=== PATIENT | male | born 1940 | race Caucasian/White ===

== ENCOUNTER 2020-11-15 17:54 | Emergency (ER) | payer MEDICARE, SELFPAY ==
--- NOTE | ~2020-11-15 | XR_ITS ---
XR hip LT 2V w AP pelvis DATE: 11/15/2020 18:29 INDICATION: Fall. Left hip pain. TECHNIQUE: AP pelvis. AP and lateral views of left hip. COMPARISON: None FINDINGS: Iliac and femoral artery calcifications. Normal alignment at the pubic symphysis and sacroiliac joints. No pelvic fracture or bone destruction is evident. No fracture or dislocation, avascular necrosis or bone destruction of the left hip. IMPRESSION: No pelvic or left hip fracture is detected Reviewed, dictated and finalized at location A.
[2020-11-15 17:46] VITALS: BP 186/101; PULSE 83; RESP 18; TEMP 36.9; O2SAT 98
--- NOTE | 2020-11-15 19:02 | PC.NURSE ---
pts daughter/concetta estebanry
--- NOTE | 2020-11-15 20:02 | ED.FALL ---
HPI - Fall General Chief Complaint: Fall Stated Complaint: FALL/L HIP PAIN Time Seen by Provider: 11/15/20 18:28 Source: patient Mode of arrival: EMS Limitations: no limitations History of Present Illness HPI Narrative: 80-year-old male He uses an electric scooter to get around Day he fell while transferring off a scooter and landed on his left hip and butt Essentially he has very little if any complaints of any kind of pain due to this however when the nurses checked him out they found He denies any other new injury to any other places, his left arm is wrapped because of a skin tear sustained in a fall a week or 2 ago Related Data Allergies Allergy/AdvReac Type Severity Reaction Status Date / Time NSAIDS (Non-Steroidal Allergy Unknown Verified 11/15/20 18:13 Anti-Inflamma tramadol Allergy Unknown Verified 11/15/20 18:13 Review of Systems Review of Systems: All systems reviewed & are unremarkable except as noted in HPI and below Constitutional: Constitutional: Reports no additional constitutional complaints, Denies chills, Denies fatigue, Denies fever(s), Denies headache(s) and Reports weakness Eyes: Eyes: Reports no additional eye complaints and Denies change in vision ENT: Denies dizziness, Denies headache(s) and Denies sore throat Cardiovascular: Cardiovascular: Denies chest pain and Denies dyspnea Respiratory: Respiratory: Denies cough and Denies dyspnea Gastrointestinal: Gastrointestinal: Denies abdominal pain, Denies diarrhea and Denies vomiting Genitourinary: Genitourinary: Denies dysuria, Denies urinary frequency and Reports urinary incontinence Musculoskeletal: Musculoskeletal: Denies deformity, Reports arthralgias, Denies joint swelling and Denies numbness Integumentary/Breasts: Skin/Breast: Denies rash and Denies wounds Neurologic: Denies headache(s), Denies focal weakness and Denies numbness Psychiatric: Psychiatric: Reports no additional psychiatric complaints Endocrine: Endocrine: Reports no additional endocrine complaints Hematologic/Lymphatic: Hematologic/Lymphatic: Reports no additional hematologic/lymphatic complaints Allergic/Immunologic: Allergic/Immunologic: Reports no additional allergic/immunologic complaints Exam Const: General: cooperative, no acute distress and alert HENMT: Head: normal to inspection, normocephalic, atraumatic, no contusions, no hematomas and no lacerations Ears: external ears normal Eyes: Conjunctivae: conjunctivae normal EOM: EOMs intact bilaterally Neck: Neck: normal visual inspection, supple and no JVD Chest: Other: Nontender Resp: Effort & Inspection: normal respiratory effort and not labored Auscultation: other (BS =) GI: GI Palp: Yes Soft to palpation and No Tenderness to palpation present (GI) Back/Spine/Pelvis: Other: No spinal tenderness Skin: General skin exam: normal color and no rashes or lesions noted Neuro: General: moves all extremities Speech: normal speech Extrem: General: normal to inspection Other: Full range of motion both hips, no pain Psych: Affect: normal affect Course Vital Signs Vital signs: Vital Signs Temperature 36.9 C 11/15/20 17:46 Pulse Rate 83 11/15/20 17:46 Respiratory Rate 18 11/15/20 17:46 Blood Pressure 186/101 H 11/15/20 17:46 Pulse Oximetry 98 11/15/20 17:46 Temperature 36.9 C 11/15/20 17:46 Pulse Rate 83 11/15/20 17:46 Respiratory Rate 18 11/15/20 17:46 Blood Pressure 186/101 H 11/15/20 17:46 Pulse Oximetry 98 11/15/20 17:46 MDM - Fall Imaging Data Radiologist's impression: ITS Impressions Hip/Pelvis X-Ray 11/15/20 18:40 IMPRESSION: No pelvic or left hip fracture is detected Discharge Plan Discharge Clinical Impression: Fall, Contusion of hip Patient Disposition: NH Intermediate/Asst Living Condition: Stable Instructions: Fall Prevention for Older Adults (ED), Contusion in Adults (ED) Additional Instructions: Fo
[2020-11-15 20:15] VITALS: BP 175/70; PULSE 82; RESP 79; TEMP 37.1; O2SAT 99
== END 2020-11-15 20:19 ==
PROVIDERS: Emergency Provider Emergency Medicine
DX: S70.02XA Contusion of left hip, initial encounter (principal); W05.2XXA Fall from non-moving motorized mobility scooter, initial encounter
CPT/HCPCS: 73502; 99283

== ENCOUNTER 2021-01-01 10:13 | Inpatient (IN) | payer MEDICARE, SELFPAY ==
[2021-01-01] VITALS (76 sets, daily range): BP systolic 105–148; BP diastolic 48–102; PULSE 68–92; RESP 14–29; TEMP 36.4–38.9; O2SAT 93–100
--- NOTE | ~2021-01-01 | US_ITS ---
EXAMINATION: US renal BI DATE: 01/03/2021 12:52 INDICATION: Elevated creatinine TECHNIQUE: Multiple grayscale and Doppler ultrasound images of the kidneys were obtained. COMPARISON: None. FINDINGS: The right kidney measures 9.6 x 4.9 x 5.2 cm and contains a 3.8 cm cyst. The left kidney me asures 9.0 x 4.9 x 5.3 cm. The kidneys demonstrate normal parenchymal echogenicity. There is mild tika ateral hydronephrosis. The bladder is normal. IMPRESSION: 1. Mild bilateral hydronephrosis. Reviewed, dictated and finalized at location A.
--- NOTE | ~2021-01-01 | XR_ITS ---
EXAMINATION: XR chest 1V portable DATE: 01/01/2021 10:47 INDICATION: Shortness of breath TECHNIQUE: frontal view of the chest was obtained. COMPARISON: 11/12/2007 FINDINGS: Suture line in the left midlung zone and additional suture line and a few surgical clips in the left lower lung zone. There are nodular airspace opacities in the left midlung zone and in the right upper lung zone. No pulmonary edema, pleural effusion or pneumothorax. Heart size can't for AP technique. Median sternotomy wires and mediastinal surgical clips are seen, likely from prior coronary artery by pass grafting. IMPRESSION: 1. Nodular opacities in the left mid and right upper lung zones which could be infectious, inflammato ry or malignant in etiology. Recommend follow-up chest CT for further evaluation. 2. Postoperative changes in the left lung. Correlate with surgical history. Reviewed, dictated and finalized at location A. IMPRESSION: 1. Nodular opacities in the left mid and right upper lung zones which could be infectious, inflammatory or malignant in etiology. Recommend follow-up chest CT for further evaluation. 2. Postoperative changes in the left lung. Correlate with surgical history.
--- NOTE | ~2021-01-01 | CT_ITS ---
EXAMINATION: CT diagnostic chest wo con DATE: 01/01/2021 12:57 INDICATION: Chest infiltration TECHNIQUE: Computed tomography (CT) of the chest was performed without intravenous contrast. Addition al 3D reconstructions utilizing coronal maximum intensity projection (MIP) were performed. Automated exposure control and iterative reconstruction technique were employed. The dose-length product was 25 6.13 mGy-cm. COMPARISON: None FINDINGS: There are multiple cavitary nodules scattered throughout both lungs. Many of the nodules demonstrate lobular margins and 8 appear to follow a perilymphatic distribution. The largest nodules in both lung s measuring up to 3 cm. There are suture lines along side a 50 nodules in the left lower lobe which s uggests possible prior biopsy. No pulmonary edema or pleural effusion. Mild cardiomegaly. Atheroscler otic coronary artery calcifications. Coronary artery stenting along with median sternotomy and likely coronary artery bypass grafting. Aortic valve calcification. No pericardial effusion. Atheroscleroti c calcifications along the normal caliber thoracic aorta and at the origins of the great vessels. No pathologically enlarged thoracic lymphadenopathy. Multiple calcified gallstones in the dependent aspe ct of the otherwise normal-appearing gallbladder. Incompletely imaged moderate bilateral hydronephros is. The bilaterality suggests outlet obstruction as etiology although there are a few tiny right annabel l stones in the distal obstructing stone cannot be excluded. Mild to moderate thoracic spondylosis. N o suspicious lytic or blastic bone lesions. IMPRESSION: 1. Multiple scattered cavitary nodules throughout both lungs with perilymphatic distribution. Suture line seen left lower lobe suggest this may been up previously with biopsy and would correlate with shen rgical history. Differential would include cavitating malignancy, septic emboli or atypical infection s including fungal and mycobacterial. Differential would also include noninfective etiologies such as rheumatoid nodules, granulomatosis with polyangiitis or sarcoidosis. Would consider CT-guided biopsy if these have not been previously worked up. Reviewed, dictated and finalized at location A. IMPRESSION: 1. Multiple scattered cavitary nodules throughout both lungs with perilymphatic distribution. Suture line seen left lower lobe suggest this may been up previo usly with biopsy and would correlate with surgical history. Differential would include cavitating malignancy, septic emboli or atypical infections including f ungal and mycobacterial. Differential would also include noninfective etiologie s such as rheumatoid nodules, granulomatosis with polyangiitis or sarcoidosis. Would consider CT-guided biopsy if these have not been previously worked up.
--- NOTE | 2021-01-01 10:25 | ECG_ITS ---
Measurements Intervals [place] Rate: 94 P: 27 WV: 134 QRS: -18 QRSD: 125 T: 37 QT: 380 QTc: 477 Interpretive Statements SINUS RHYTHM ATRIAL PREMATURE COMPLEX RSR' IN V1 OR V2, CONSIDER RIGHT VENTRICULAR HYPERTROPHY OR RIGHT VCD CONSIDER INFERIOR INFARCT, AGE INDETERMINATE BASELINE ARTIFACT- I, II, III, AVR, AVL, AVF, V3-V6 BORDERLINE ECG Electronically Signed On 01-01-2021 15:29:33 CDT by Karan José D.O.
[2021-01-01 10:37] LABS: Alveolar/Arterial O2 Gradient 81.8 mmHg; Base Excess ABG -0.8 mEq/l (+/-2.0); Carboxyhemoglobin 0.4 % THb (0-2.0); Fractional Inspired Oxygen 28 %; HCO3 ABG 23.5 mEq/l (22.0-26.0); Oxygen Content ABG 13.3 %vol (16.0-22.0); Oxygen Saturation ABG 95.3 % (95.0-100.0); Oxyhemoglobin 93.8 % THb (90.0-100.0); PCO2 ABG 36.9 mmHg (35.0-45.0); PO2 ABG 74.3 mmHg (80.0-100.0); PO2 FiO2 Ratio Arterial Blood 2.65 %; Reduced Hemoglobin 5.8 %THb (0-5.0); pH ABG 7.421 (7.350-7.450)
[2021-01-01 10:38] LABS: Device NASAL CANNULA; Modified Allen's Test Pass; Site Drawn RIGHT RADIAL
[2021-01-01 11:10] LABS: Basophils Percent Auto 0.3 % (0.2-1.2); Eosinophils Percent Auto 0.2 % (0-4.4); Hematocrit 25.5 % (42.0-52.0); Hemoglobin 8.4 g/dL (14.0-18.0); Immature Granulocyte Absolute 0.04 K/mm3 (0.00-0.031); Immature Granulocyte Percent A 0.5 % (0-0.5); Lymphocytes Absolute Auto 0.28 K/mm3 (0.9-3.2); Lymphocytes Percent Auto 3.3 % (18.3-44.2); Mean Corpuscular HGB Conc 32.9 g/dl (32-36); Mean Corpuscular Volume 91.1 fl (80-100); Mean Platelet Volume 9.5 fl (7.4-10.4); Monocytes Absolute Auto 0.7 K/mm3 (0.1-0.6); Monocytes Percent Auto 8.1 % (2.6-8.5); Neutrophils Absolute Auto 7.5 K/mm3 (1.3-6.7); Neutrophils Percent Auto 87.6 % (45.5-73.1); Platelet Count Result 178 k/mm3 (150-375); Red Cell Distribution Width 14.3 % (11.5-14.5); White Blood Count 8.6 K/mm3 (4.5-10.0)
[2021-01-01 11:19] LABS: INR 1.2; Prothrombin Time 14.7 Seconds (11.1-14.7)
[2021-01-01 11:20] LABS: Alanine Aminotransferase 16 U/L (4-50); Albumin Level 3.6 g/dL (3.5-5.1); Alkaline Phosphatase 63 U/L (38-126); Anion Gap 12 mmol/L (8-16); Aspartate Amino Transferase 28 U/L (17-59); Bilirubin,Total 0.9 mg/dL (0.2-1.3); Blood Urea Nitrogen 38 mg/dL (9-20); Calcium 8.1 mg/dL (8.4-10.2); Carbon Dioxide 23 mmol/L (22-30); Chloride 93 mmol/L (98-107); Estimated CRCL calculation 28 ml/min; Estimated Glomerular Filt Rate 29; Glucose 386 mg/dL (65-110); Partial Thromboplastin Time 31.4 SECONDS (22.3-36.8); Potassium 3.9 mmol/L (3.4-5.0); Sodium 128 mmol/L (137-145)
[2021-01-01 11:38] LABS: Add Urine Microscopic? YES; Appearance Urine Cloudy (Clear); Bacteria Urine Trace /hpf; Bilirubin Urine Negative (Negative); Blood Urine 1+ (Negative); Color Urine Yellow (Yellow); Glucose Urine UA 3+ mg/dL (Negative); Ketones Urine Negative (Negative); Leukocyte Esterase Ur 3+ LEU/UL (Negative); Nitrate Urine Positive (Negative); Protein Urine 2+ mg/dL (Negative); Specific Grav Ur 1.006 (1.001-1.035); Urobilinogen Urine Negative mg/dL (<2.0); WBC Urine >75 /hpf
--- NOTE | 2021-01-01 12:32 | ED.GENADULT ---
HPI - General Adult General Chief complaint: Shortness of Breath/Dyspnea Stated complaint: sob Time Seen by Provider: 01/01/21 10:46 Source: patient, family, EMS and RN notes reviewed Limitations: no limitations History of Present Illness HPI narrative: Patient is 80 years old white male brought to the emergency room from assisted living because of shortness of breath. The assisting living staff reports that patient did not use his CPAP last night. This morning his saturation was 78% on room air. Patient does not wear oxygen during daytime. Patient does not know why he did not use CPAP last night. 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 Patient had PET scan 2 days ago at [facility] for prostatic cancer evaluation. Patient is fully vaccinated for COVID-19 Related Data Allergies Allergy/AdvReac Type Severity Reaction Status Date / Time NSAIDS (Non-Steroidal Allergy Unknown Verified 11/15/20 18:13 Anti-Inflamma tramadol Allergy Unknown Verified 11/15/20 18:13 Review of Systems Review of Systems: CONSTITUTIONAL: Denies fever, chills, or sweats. EYES: Denies visual changes, redness, or discharge. ENT: Denies rhinorrhea, congestion, sore throat, or otalgia. CARDIOVASCULAR: Denies chest pain, palpitations, or edema. RESPIRATORY: Denies cough or dyspnea. GASTROINTESTINAL: Denies abdominal pain, nausea, vomiting, or diarrhea. GENITOURINARY: Denies dysuria or hematuria. SKIN: Denies rash or itching. MUSCULOSKELETAL: Denies back pain, joint pain, or myalgia. NEUROLOGIC: Denies headache, numbness, or weakness. PSYCHIATRIC: Denies anxiety or depression. Exam Narrative: General appearance: Well-developed, well-nourished Skin: Normal color Head: Normocephalic, nontraumatic Eyes: Clear conjunctiva ENT: Oropharynx normal, ears normal, nose normal Neck: Supple, nontender Chest and respiratory: Diminishment of air entry bilaterally, few scattered rales and rhonchi bilaterally Heart: Regular rate/rhythm Abdomen: Soft, nontender, no organomegaly, quiet bowel sounds Vascular: Normal peripheral pulses, normal capillary refill. Musculoskeletal: Normal range of motion, nontender back Neurologic: Alert and oriented ?3, DISTRIBUTION LEAD is normal as tested, no gross motor deficit Course Course Emergency Course: Improving Consultations Consultation #1: DR SONG, oncologist at [facility]. She is telling me that the PET scan 2 days ago showed cavitary lesions patient was not notified about it and no extra precautions was instructed at that time Date: 01/01/21 Time: 17:17 Consultation #2: DR BLACKWOOD, hospitalist at [facility] who accepted patient transfer Date: 01/01/21 Time: 17:17 Consultation #3: DR FLOREZ, declined to admit patient Date: 01/01/21 Time: 19:09 Additional Consultation(s): DR EDER Akhtar agreed to manage the patient by the phone and work with the hospitalist to to recommend certain labs and medicine . But is not available today and tomorrow. Vital Signs Vital signs: Vital Signs Temperature 38.9 C H 01/01/21 10:29 Pulse Rate 92 01/01/21 10:29 Respiratory Rate 28 H 01/01/21 10:29 Blood Pressure 148/102 H 01/01/21 10:29 Pulse Oximetry 97 01/01/21 10:29 Temperature 36.4 C L 01/01/21 14:25 Pulse Rate 73 01/01/21 18:30 Respiratory Rate 21 H 01/01/21 18:30 Blood Pressure 105/52 L 01/01/21 18:16 Pulse Oximetry 98 01/01/21 18:30 Medical
[2021-01-01] MEDS: SODIUM CHLORIDE 0.9% IV 1,000 ML 999 ML IV CONT (13:55)
[2021-01-01] MEDS: ACETAMINOPHEN 325 MG TABLET 650 MG PO (13:55)
--- NOTE | 2021-01-01 20:08 | PC.NURSE ---
ED MD Clifton spoke with daughter to update her on plan of care prior to end of his shift. Per ED MD, pt has hx of lung ca, and had PET scan [facility] ago. pt to be transferred there for oncology, and was accepted by hospitalist. awaiting room assignment at [facility], but none available presently. Pt incontinent of urine. incontinence care provided and linens changed. linens changed. diabetic pt.
[2021-01-01 20:16] LABS: Glucose Point of Care 424 mg/dl (65-105)
[2021-01-01] MEDS: INSULIN HUMAN REGULAR (*BKC) 100 UNITS/ML 10 UNITS IV PUSH (20:32)
[2021-01-01 21:52] LABS: Glucose Point of Care 189 mg/dl (65-105)
--- NOTE | 2021-01-01 23:04 | PC.NURSE ---
payroll secretary called [facility] for update on bed assignment. Per transfer center, no beds available tonight for pt. will continue to monitor.
[2021-01-02] VITALS (49 sets, daily range): BP systolic 138–182; BP diastolic 50–126; PULSE 71–94; RESP 15–30; TEMP 37.2–37.9; O2SAT 59–100; BMI 28.6
[2021-01-02 00:15] LABS: Glucose Point of Care 170 mg/dl (65-105)
--- NOTE | 2021-01-02 00:47 | PC.NURSE ---
pt provided with snack as requested. pharmacy called to verify pt's abx ordered.
--- NOTE | 2021-01-02 04:41 | PC.NURSE ---
[facility] transfer center staff Pari called to update this RN that pt remains on wait list for bed at [facility], although none available at present time. none will be available until after 0700 am at the earliest. Transfer center also received updates on pt's condition, which has not changed since his arrival. will continue to monitor.
--- NOTE | 2021-01-02 04:58 | PC.NURSE ---
Pt used call light to state he had to have a bm. Pt incontinent of bm in adult brief. placed on bedpan. incontinence care provided.
--- NOTE | 2021-01-02 06:47 | PC.NURSE ---
Breakfast tray ordered for pt.
[2021-01-02 07:43] LABS: Glucose Point of Care 310 mg/dl (65-105)
[2021-01-02] MEDS: INSULIN ASPART (*BKC) 100 UNITS/ML SUB-Q ×3 (08:00→18:06)
--- NOTE | 2021-01-02 08:37 | PC.NURSE ---
pt continues to refuse breakfast despite receiving insulin for accuchek 310
[2021-01-02 09:36] LABS: Glucose Point of Care 275 mg/dl (65-105)
--- NOTE | 2021-01-02 10:47 | PM.IMHP ---
H&P: HPI History of Present Illness Date/Time: 01/02/21 10:47 he is 80-year-old male with past medical history HANNAH on CPAP, diabetes mellitus, hypertension, hyperlipidemia, chronic kidney disease, CA prostate with lung Mets who was sent over here from assisted living facility with hypoxia. Patient himself was not complaining of any shortness of breath. His only complaint was dizziness and lightheadedness. He denied have any syncope or fall. It seems that he was found hypoxic to 79% on room air by EMS. He is febrile as well with a T-max of 38.9?. He denied have any significant cough hemoptysis night sweats. He denied have any fever chills nausea vomiting abdominal pain or diarrhea. His appetite is poor. He denied have any chest pain palpitation. He normally ambulates with the help of walker and wheelchair. He is not on home oxygen. He follows with oncologist Dr. Mendoza at [facility]. It seemed that he was diagnosed to have prostate cancer 28 years ago. He has known lung Mets from prostate cancer. He was treated at [place] with some experimental drugs. He never had radiation. He denied have any exposure to in known TB patient. He denied have any extended travel outside [place] He was on 2 L of oxygen but his oxygen saturation was 100% at the time my evaluation. He had workup done in emergency department including CT of the chest which showed multiple cavitating nodules bilaterally in the lung. He does have cholelithiasis and nephrolithiasis with some moderate hydronephrosis. His creatinine is 2.2. His serum sodium is 128. Chief Complaint: Shortness of breath Review of Systems Review of Systems: A comprehensive review of systems has been reviewed with the patient and most of the symptoms are negative except the one's mentioned above in HPI. Meds Home Medications and Allergies Home Medications Medication Instructions Recorded Confirmed Type carvedilol 01/01/21 History fludrocortisone mg 01/01/21 History gabapentin 01/01/21 History insulin aspart U-100 unit SUBCUT 01/01/21 History insulin glargine [Lantus Solostar SUBCUT 01/01/21 History U-100 Insulin] omeprazole 01/01/21 History oxybutynin chloride mg PO 01/01/21 History rosuvastatin mg 01/01/21 History semaglutide [Ozempic] mg SUBCUT 01/01/21 History sertraline mg 01/01/21 History trazodone 100 mg PO HS 01/01/21 History Allergies Allergy/AdvReac Type Severity Reaction Status Date / Time NSAIDS (Non-Steroidal Allergy Unknown Verified 01/01/21 22:59 Anti-Inflamma tramadol Allergy Unknown Verified 01/01/21 22:59 Vital Signs Vital Signs - 24 hr 01/01/21 11:45 01/01/21 12:12 01/01/21 12:15 Temperature Pulse Rate 80 80 79 Respiratory Rate 25 H 25 H 22 H Blood Pressure 131/99 H Pulse Oximetry 99 100 01/01/21 12:17 01/01/21 13:01 01/01/21 13:15 Temperature Pulse Rate 75 70 70 Respiratory Rate 19 14 14 Blood Pressure 141/57 H Pulse Oximetry 100 100 98 01/01/21 13:17 01/01/21 13:54 01/01/21 14:00 Temperature Pulse Rate 70 74 73 Respiratory Rate 14 17 16 Blood Pressure 148/63 H Pulse Oximetry 99 97 99 01/01/21 14:02 01/01/21 14:21 01/01/21 14:25 Temperature 36.4 C L Pulse Rate 74 72 Respiratory Rate 20 19 Blood Pressure 117/61 Pulse Oximetry 98 98 01/01/21 14:31 01/01/21 14:32 01/01/21 14:36 Temperature Pulse Rate 73 73 73 Respiratory Rate 20 20 17 Blood Pressure 122/54 L 123/53 L Pulse Oximetry 98 98 98 01/01/21 17:05 01/01/21 17:15 01/01/21 17:16 Temperature Pulse Rate 70 71 71 Respiratory Rate 24 H 22 H 21 H Blood Pressure 116/53 L Pulse Oximetry 100 98 98 01/01/21 17:30 01/01/21 17:31 01/01/21 17:45 Temperature Pulse Rate 74 73 71 Respiratory Rate 17 20 23 H Blood Pressure 116/75 Pulse Oximetry 94 99 99 01/01/21 17:46 01/01/21 18:00 01/01/21 18:01 Temperature Pulse Rate 69 69 73 Respiratory Rate 21 H 20 18 Blood Pre
[2021-01-02 12:33] LABS: Glucose Point of Care 276 mg/dl (65-105)
[2021-01-02] MEDS: SODIUM CHLORIDE 0.9% IV 1,000 ML 75 ML IV CONT (12:41)
--- NOTE | 2021-01-02 13:26 | PC.NURSE ---
accepting md at [facility] is dr. wood. accepting oncologist at [facility] is dr. anderson
--- NOTE | 2021-01-02 13:58 | ADMGEN ---
This patient, Horace Wynne, was admitted to [facility] Surg Room 309-01. Patient/family oriented to hospital policies and general routines including ID bracelet, bed and alarms, visiting hours, pain management, procedures, bathroom and other care routines, personal items, smoking policy, room service/diet, and visiting hours. Information on how to activate the Rapid Response Team has been discussed. Patient/Family are encouraged to report perceived risks to care and to ask questions if they do not understand what they are told or what they should do.
[2021-01-02 17:37] LABS: Glucose Point of Care 350 mg/dl (65-105)
[2021-01-02 17:59] LABS: Anion Gap 9 mmol/L (8-16); Blood Urea Nitrogen 32 mg/dL (9-20); Calcium 8.2 mg/dL (8.4-10.2); Carbon Dioxide 24 mmol/L (22-30); Chloride 99 mmol/L (98-107); Estimated CRCL calculation 28 ml/min; Estimated Glomerular Filt Rate 34; Glucose 336 mg/dL (65-110); Potassium 3.9 mmol/L (3.4-5.0); Sodium 132 mmol/L (137-145)
[2021-01-02] MEDS: DOCUSATE SODIUM 100 MG CAPSULE PO (18:06)
[2021-01-02] MEDS: ACETAMINOPHEN 325 MG TABLET 650 MG PO (19:02)
[2021-01-03] VITALS (9 sets, daily range): BP systolic 134–156; BP diastolic 61–78; PULSE 72–88; RESP 18–19; TEMP 36.8–37.4; O2SAT 90–95
[2021-01-03] MEDS: ONDANSETRON INJ 4 MG/2 ML VIAL IV PUSH (02:50)
--- NOTE | 2021-01-03 07:39 | PM.IMPN ---
Progress Note: A&P Assessment and Plan (1) Acute respiratory failure with hypoxia: Code(s): J96.01 - Acute respiratory failure with hypoxia Status: Acute Assessment and Plan: - Breathing comfortably on room air at this time -Continue following for TB results - Pulmonology consult is following, it is unclear if it is related to his malignant neoplasm of prostate which has metastasized to his lungs. (2) HANNAH (obstructive sleep apnea): Code(s): G47.33 - Obstructive sleep apnea (adult) (pediatric) Status: Acute Assessment and Plan: - patient has declined CPAP for his HANNAH. (3) Prostate cancer metastatic to lung: Code(s): C61 - Malignant neoplasm of prostate; C78.00 - Secondary malignant neoplasm of unspecified lung Status: Acute Assessment and Plan: - we are awaiting transfer to [facility] so patient to follow with his oncologist in the setting of having hemoptysis with known lung metastasis - history of partial left lung resection lower lobe (4) Hyponatremia: Code(s): E87.1 - Hypo-osmolality and hyponatremia Status: Acute Assessment and Plan: - sodium 130 - may be SIADH from cancer, this may be related to trazodone. - adding fluid restriction - consult to Dr. Lee nephrology was following (5) MAYNOR (acute kidney injury): Code(s): N17.9 - Acute kidney failure, unspecified Status: Acute Assessment and Plan: - etiology of elevated creatinine is unclear up to 2.00. baseline may be 1.3 - possibly may be post renal. nephrolithiasis with moderate hydronephrosis, possibility of bladder obstruction. bladder cancer may also be causing obstruction - renal ultrasound ordered today (6) Pneumonia: Code(s): J18.9 - Pneumonia, unspecified organism Status: Acute Assessment and Plan: - ruling out TB, continue antibiotics broad-spectrum vanc Zosyn (7) Urinary tract infection: Qualifiers: Hematuria presence: without hematuria Urinary tract infection type: site unspecified Qualified Code(s): N39.0 - Urinary tract infection, site not specified Code(s): N39.0 - Urinary tract infection, site not specified Status: Acute Assessment and Plan: - on vanc Zosyn, which should cover urinary infection as well as Pulmonary. (8) Cavitary lesion of lung: Code(s): J98.4 - Other disorders of lung Status: Acute Assessment and Plan: - tuberculosis test pending, may be related to lung metastasis (9) Type 2 diabetes mellitus: Code(s): E11.9 - Type 2 diabetes mellitus without complications Status: Acute Assessment and Plan: blood sugars are consistently elevated 200s to 300s, will adjust insulin. adding mealtime 4 units a.c. Additional Plan - full code - disposition: May transfer to [facility] care patient's oncologist and patient having symptoms of hemoptysis in setting of lung metastasis of prostate cancer - home meds reconciled Time Spent With Patient Time with patient: 15 - 25 minutes Subjective Date/time seen: 01/03/21 07:39. patient examined he has no new complaints today, he feels well. No problems overnight.. We are watching his sodium and creatinine. We are still waiting for transfer to [facility] care so patient can see his oncologist. Denies fevers, chills, nausea, vomiting, diarrhea, hemoptysis, hematemesis. Review of Systems Review of Systems: All systems reviewed & are unremarkable except as noted in HPI and below Exam Narrative: - GENERAL: No acute distress. Appears stated age. - EYES: EOMI. Anicteric. - HENT: Moist mucous membranes. No scleral icterus. - LUNGS: Clear to auscultation bilaterally. Breathing comfortably on room air. - CARDIOVASCULAR: Regular rate and rhythm. No murmur. No JVD. - ABDOMEN: Soft, non-tender and non-distended. No palpable masses. - EXTREMITIES: No edema. Peripheral pulses 2+. Non-tender. - NEUROLOGIC: No focal n
[2021-01-03] MEDS: ENOXAPARIN 40 MG/0.4 ML SYRINGE SUB-Q (08:24)
[2021-01-03] MEDS: DOCUSATE SODIUM 100 MG CAPSULE PO ×2 (08:24→17:32)
[2021-01-03] MEDS: INSULIN ASPART (*BKC) 100 UNITS/ML SUB-Q ×4 (08:26→17:32)
[2021-01-03 08:28] LABS: Glucose Point of Care 346 mg/dl (65-105)
--- NOTE | 2021-01-03 09:47 | PM.CNNEP ---
Assessment and Plan Assessment and plan (1) Hyponatremia: Code(s): E87.1 - Hypo-osmolality and hyponatremia Status: Acute Assessment and Plan: the patient has a low sodium. There are several things that can cause a low sodium. He is on trazodone which can do this. This might be related to the cavitary lesions in his lungs. He also has metastatic prostate cancer which could do this. If he is here very long we could check imaging of the brain to see if there might be a cause here. Thyroid and adrenal insufficiency could also cause hyponatremia. At this point his sodium level is better. I am just going to watch the sodium level in see if it improves on its own. We can add a fluid restriction if there is an issue. (2) MAYNOR (acute kidney injury): Code(s): N17.9 - Acute kidney failure, unspecified Status: Acute Assessment and Plan: The patient has an elevated creatinine. It is not clear what his baseline creatinine runs. He did have a mildly elevated creatinine in 2016 but the last creatinine he had was 1.3. Will check a renal ultrasound urine electrolytes and a CK. The creatinine is improving as well. Perhaps he was a little dehydrated. This would fix both the Sodium and the creatinine. (3) Cavitary lesion of lung: Code(s): J98.4 - Other disorders of lung Status: Acute Assessment and Plan: He is on isolation for tuberculosis while this is being tested. These could also be from the prostate cancer. (4) Acute respiratory failure with hypoxia: Code(s): J96.01 - Acute respiratory failure with hypoxia Status: Acute Assessment and Plan: His oxygenation is good on room air. (5) HANNAH (obstructive sleep apnea): Code(s): G47.33 - Obstructive sleep apnea (adult) (pediatric) Status: Acute Assessment and Plan: He uses a CPAP mask (6) Prostate cancer metastatic to lung: Code(s): C61 - Malignant neoplasm of prostate; C78.00 - Secondary malignant neoplasm of unspecified lung Status: Acute Assessment and Plan: he is getting therapy at [facility] History of Present Illness Reason for Consult Consult date: 01/03/21 Chief Complaint Chief complaint: Lung Cavitating Masses History of Present Illness Narrative: Horace is a very pleasant 80-year-old gentleman who has low sodium and elevated creatinine. The patient has multiple medical problems including hypertension, diabetes, sleep apnea on a CPAP machine, prostate cancer for many years but now with lung metastases, cholelithiasis, nephrolithiasis, who was in assisted living. The patient was checked for oxygen and his O2 sat was low. He had some lightheadedness. He was evaluated in the emergency room here and found to be hypoxic. Chest x-ray and chest CT showed cavitating lesions in the lungs. He was admitted. He is being tested for tuberculosis. Is on respiratory isolation. Currently he is not short of breath and he is off oxygen. He is feeling okay today and is eager to be transferred to [facility]. The patient denies any prior history of kidney disease that he knows of. He says that he is incontinent of urine. He has never had a procedure on his prostate or his bladder that he knows of. The CT scan did show bilateral hydronephrosis. He does not smoke or drink Review of Systems Constitutional: Constitutional: Reports no additional constitutional complaints Eyes: Eyes: Reports no additional eye complaints ENT: Reports system reviewed and no additional complaints, except as documented Cardiovascular: Cardiovascular: Reports no additional cardiovascular complaints Respiratory: Respiratory: Reports no additional respiratory complaints Gastrointestinal: Gastrointestinal: Reports no additional gastrointestinal complaints Genitourinary: Genitourinary: Reports no additional male genitourinary co
--- NOTE | 2021-01-03 09:54 | PM.CNPUL ---
Assessment and Plan Assessment and plan (1) Prostate cancer metastatic to lung: Code(s): C61 - Malignant neoplasm of prostate; C78.00 - Secondary malignant neoplasm of unspecified lung Status: Acute Assessment and Plan: Patient with a history of metastatic prostate cancer to the lung per his report. He is followed at [facility] and I have no reports or images to compare to our current CT scan of the chest. Until we have this information available will continue vanc and Zosyn, respiratory isolation for possible tuberculosis until we have QuantiFERON gold study back. Currently states he is breathing normal now and his room air saturations are 90%. Will follow with you. (2) HANNAH (obstructive sleep apnea): Code(s): G47.33 - Obstructive sleep apnea (adult) (pediatric) Status: Acute Assessment and Plan: Patient states he uses an auto PAP at his living facility. I offered patient an auto PAP during this hospitalization and he declined this. History of Present Illness History of Present Illness Consult date: 01/03/21 Reason for consult: abnormal CXR/CT Chief complaint: Lung Cavitating Masses Narrative: 80-year-old with a history of metastatic prostate cancer to the lungs 28 years ago. Patient was treated with experimental drugs in [place] and has been maintained on Lupron. He tells me he had some treatment through [place] where they [place] blood send it to [place] and then sent it back to [place] and was re- in [place] did he had 6-8 of these treatments for 5 years ago through [facility]. Patient is currently followed through [facility] oncologist Dr. Arnaud hackett and saw him few months ago. Patient tells me he has had a PET scan last week the results of which I do not have. Patient states he is incontinent for the last 4-5 years. Patient is awaiting a bed at [facility]. Of note the patient also tells me he has obstructive sleep apnea and uses an auto PAP through [facility]. I asked the patient if he would like us to initiate auto Pap in our hospital and he says that he prefers not to wear auto Pap in our hospital at this time. Patient presented the hospital with hypoxemia and has been empirically treated with vancomycin and Zosyn. Patient had a CT scan of the chest that showed multiple cavitary nodules bilaterally and he was placed in respiratory isolation. A QuantiFERON gold was sent. Patient was also noted to have a E coli UTI. Currently the patient tells me he is now breathing in a normal state for him. He denies any fever, chills, cough, phlegm, hemoptysis or chest pain. Currently his room air sats are 91%. Review of Systems Review of Systems: All systems reviewed & are unremarkable except as noted in HPI and below Eyes: Eyes: Reports no additional eye complaints ENT: Reports system reviewed and no additional complaints, except as documented Cardiovascular: Cardiovascular: Reports no additional cardiovascular complaints Respiratory: Respiratory: Reports no additional respiratory complaints Gastrointestinal: Gastrointestinal: Reports no additional gastrointestinal complaints Musculoskeletal: Musculoskeletal: Reports no additional musculoskeletal complaints Integumentary/Breasts: Skin/Breast: Reports system reviewed and no additional complaints, except as docu Neurologic: Reports system reviewed and no additional complaints, except as documented Psychiatric: Psychiatric: Reports no additional psychiatric complaints Endocrine: Endocrine: Reports no additional endocrine complaints [facility] Social History Social History Smoking status: Never smoker Second hand tobacco smoke exposure: No Substance use: current Gender identity (if verbalized by the patient): Male Sexual Orientation (if Verbalized by the Patient): Straight or Heterosexual Spiritual
[2021-01-03 10:03] LABS: Basophils Percent Auto 0.5 % (0.2-1.2); Eosinophils Absolute Auto 0.1 K/mm3 (0-0.3); Eosinophils Percent Auto 1.6 % (0-4.4); Hematocrit 23.3 % (42.0-52.0); Hemoglobin 7.6 g/dL (14.0-18.0); Immature Granulocyte Absolute 0.02 K/mm3 (0.00-0.031); Immature Granulocyte Percent A 0.4 % (0-0.5); Lymphocytes Absolute Auto 0.74 K/mm3 (0.9-3.2); Lymphocytes Percent Auto 13.3 % (18.3-44.2); Mean Corpuscular HGB Conc 32.6 g/dl (32-36); Mean Corpuscular Hemoglobin 29.8 pg (26-34); Mean Corpuscular Volume 91.4 fl (80-100); Mean Platelet Volume 10.4 fl (7.4-10.4); Monocytes Absolute Auto 0.6 K/mm3 (0.1-0.6); Monocytes Percent Auto 10.8 % (2.6-8.5); Neutrophils Absolute Auto 4.1 K/mm3 (1.3-6.7); Neutrophils Percent Auto 73.4 % (45.5-73.1); Platelet Count Result 187 k/mm3 (150-375); Red Blood Count 2.55 M/mm3 (4.6-6.20); Red Cell Distribution Width 14.3 % (11.5-14.5); White Blood Count 5.6 K/mm3 (4.5-10.0)
[2021-01-03 10:20] LABS: Creatine Kinase 112 U/L (55-170)
[2021-01-03 10:42] LABS: Anion Gap 9 mmol/L (8-16); Blood Urea Nitrogen 30 mg/dL (9-20); Calcium 8.1 mg/dL (8.4-10.2); Carbon Dioxide 23 mmol/L (22-30); Chloride 98 mmol/L (98-107); Estimated CRCL calculation 27 ml/min; Estimated Glomerular Filt Rate 32; Glucose 342 mg/dL (65-110); Magnesium 1.8 mg/dL (1.6-2.3); Potassium 3.9 mmol/L (3.4-5.0); Sodium 130 mmol/L (137-145)
[2021-01-03 11:55] LABS: Glucose Point of Care 344 mg/dl (65-105)
[2021-01-03 12:10] LABS: Creatinine Urine 63.1 mg/dL; Total Protein Urine Random 31 mg/dL; Ur Ttl Prot Creatinine Ratio 0.49 mg/mg (0-0.20)
[2021-01-03 12:13] LABS: Sodium Urine Random 15 meq/L
[2021-01-03 16:44] LABS: Glucose Point of Care 216 mg/dl (65-105)
[2021-01-03] MEDS: DOCUSATE SODIUM 100 MG CAPSULE 200 MG PO (17:32)
[2021-01-03 17:48] LABS: Hemoglobin A1C 8.4 % (<5.7)
[2021-01-03] MEDS: GABAPENTIN 100 MG CAPSULE 200 MG PO (20:48)
[2021-01-03] MEDS: MELATONIN 5 MG TABLET 10 MG PO (20:48)
[2021-01-03] MEDS: carvediloL 12.5 MG TABLET PO (20:48)
[2021-01-03] MEDS: INSULIN GLARGINE (*BKC) 100 UNITS/ML 17 UNITS SUB-Q (20:51)
[2021-01-03 21:57] LABS: Glucose Point of Care 213 mg/dl (65-105)
--- NOTE | 2021-01-03 23:11 | PC.NURSE ---
called report to Jonathan SCHULTE at [facility]
[2021-01-06 11:48] LABS: NIL 0.03 IU/mL; Quantiferon TB Plus, 1T NEGATIVE (NEGATIVE); TB2-NIL 0.01 IU/mL
--- NOTE | 2021-01-07 18:58 | PM.DS ---
DS: Admitting Diagnosis Admitting Diagnosis Cavitary pneumonia DS: Discharge Diagnosis Discharge Diagnosis (1) Cavitary lesion of lung: Code(s): J98.4 - Other disorders of lung Status: Acute Assessment and Plan: THIS IS A TRANSFER SUMMARY to U (2) Prostate cancer metastatic to lung: Code(s): C61 - Malignant neoplasm of prostate; C78.00 - Secondary malignant neoplasm of unspecified lung Status: Acute (3) Type 2 diabetes mellitus: Code(s): E11.9 - Type 2 diabetes mellitus without complications Status: Acute (4) Acute respiratory failure with hypoxia: Code(s): J96.01 - Acute respiratory failure with hypoxia Status: Acute DS: Summary Hospital Course Reason for hospitalization: cavitary pneumonia Hospital Course: patient is a 72-year-old male past medical history of HANNAH on CPAP, diabetes, hypertension, hyperlipidemia, CKD, prostate cancer with lung Mets presented to hospital from assisted living facility with hypoxia. Patient follows Dr. Mendoza oncologist at [facility]. he was diagnosed with prostate cancer 28 years ago and now has low known lung Mets. He was on some experimental drugs in [place]. He has never had radiation. He started having some hemoptysis and CT scan showed multiple cavitary nodules bilaterally. Patient was treated with broad-spectrum antibiotics vancomycin and Zosyn while being tested for TB with AFB and QuantiFERON gold. Because this complicated history he was transferred to [facility] to complete treatment of his cavitary pneumonia Which may be secondary to the lung metastasis and follow-up with his oncologist. Status at Discharge Functional status at discharge: bed bound Overall status at discharge: patient is not back to baseline Time Spent with Patient Time attestation: Total time spent providing and/or coordinating discharge services:35 Time spent: Greater than 30 minutes Exam Narrative: - GENERAL: No acute distress. Appears stated age. - EYES: EOMI. Anicteric. - HENT: Moist mucous membranes. No scleral icterus. - LUNGS: Clear to auscultation bilaterally. Breathing comfortably on room air. - CARDIOVASCULAR: Regular rate and rhythm. No murmur. No JVD. - ABDOMEN: Soft, non-tender and non-distended. No palpable masses. - EXTREMITIES: No edema. Peripheral pulses 2+. Non-tender. - NEUROLOGIC: No focal neurological deficits. CN II-XII grossly intact. - PSYCHIATRIC: Awake, Alert and oriented x 3. Appropriate mood and affect. - SKIN: No rashes or lesions. Warm. - LYMPH: No cervical lymphadenopathy. I last physical exam on 01/03/2021 DS: Data Data Completed and Pending Labs on day of discharge: Preliminary micro results at discharge 01/02/21 14:08 Blood Culture - Preliminary Blood 01/02/21 14:08 Blood Culture - Preliminary Blood Discharge Plan Discharge Attending physician on discharge: Rohit Thompson Consulting providers: Richard Lake ; Dean Pino ; Samy Lee ; Kushal Larkin ; Remy Tena ; Karan José ; Rohit Thompson Discharging Clinician: Rohit Thompson Anticipated Discharge Date/Time: 01/03/21 19:02 Patient Disposition: Acute Care Hospital Activity: october shower Diet: regular Discharge Instructions: please follow-up with [facility] Follow-up/Referrals: Richard Lake MD [Physician] - 4 Weeks Discharge Medications: Continued carvedilol 12.5 mg tablet 12.5 mg PO Q12H RF: 0 oxybutynin chloride 10 mg tablet extended release 24hr 10 mg PO DAILY RF: 0 sertraline 100 mg tablet 100 mg PO DAILY RF: 0 trazodone 100 mg tablet 100 mg PO HS RF: 0 omeprazole 20 mg capsule,delayed release(DR/EC) 20 mg PO DAILY RF: 0 gabapentin 100 mg capsule 200 mg PO HS RF: 0 fludrocortisone 0.1 mg tablet 0.1 mg PO DAILY RF: 0 insulin aspart U-100 100 unit/mL (3 mL) insuli
--- NOTE | 2021-01-08 07:27 | PM.TDS ---
Transfer Discharge Sum: Prov Provider Date of admission: 01/02/21 10:34 Primary care physician: Sabrina Herzog Admitting clinician: Chevy Bojorquez MD Consults: 01/02/21 Consult to Physician Routine Comment: SPOKE TO DR NAYLOR@[id number]([facility]) Consulting Provider: Dean Pino call center supervisor/MD group to consult: Pulmonology Reason for consultation: Lung cavitating masses Has provider been notified: Yes Consult to Physician Routine Comment: spoke to DR LEE@[id number]([facility]) Consulting Provider: Samy Lee call center supervisor/MD group to consult: Nephrology Reason for consultation: MAYNOR/Hyponatremia Has provider been notified: Yes 01/02/21 09:25 Consult to Physician Routine Comment: Consulting Provider: Dean Pino Reason for consultation: abnormal ct Has provider been notified: Yes DS: Admitting Diagnosis Admitting Diagnosis cavitary pneumonia DS: Discharge Diagnosis Discharge Diagnosis (1) Prostate cancer metastatic to lung: Code(s): C61 - Malignant neoplasm of prostate; C78.00 - Secondary malignant neoplasm of unspecified lung Status: Acute (2) Cavitary lesion of lung: Code(s): J98.4 - Other disorders of lung Status: Acute (3) Type 2 diabetes mellitus: Code(s): E11.9 - Type 2 diabetes mellitus without complications Status: Acute (4) Acute respiratory failure with hypoxia: Code(s): J96.01 - Acute respiratory failure with hypoxia Status: Acute Transfer Discharge Sum: Med Medications Active and Home Medications: Home Medications carvedilol 12.5 mg PO Q12H 01/01/21 [History Confirmed 01/02/21] fludrocortisone 0.1 mg PO DAILY 01/01/21 [History Confirmed 01/02/21] gabapentin 200 mg PO HS 01/01/21 [History Confirmed 01/02/21] insulin aspart U-100 unit SUBCUT 01/01/21 [History] insulin glargine [Lantus Solostar U-100 Insulin] 17 unit SUBCUT USEASDIRECTD 01/01/21 [History Confirmed 01/02/21] omeprazole 20 mg PO DAILY 01/01/21 [History Confirmed 01/02/21] oxybutynin chloride 10 mg PO DAILY 01/01/21 [History Confirmed 01/02/21] rosuvastatin 10 mg PO DAILY 01/01/21 [History Confirmed 01/02/21] semaglutide [Ozempic] 0.5 mg SUBCUT WEEKLY 01/01/21 [History Confirmed 01/02/21] sertraline 100 mg PO DAILY 01/01/21 [History Confirmed 01/02/21] trazodone 100 mg PO HS 01/01/21 [History Confirmed 01/02/21] Slow Release Iron 45 mg PO DAILY 01/02/21 [History Confirmed 01/02/21] acetaminophen [Tylenol] 500 mg PO Q6H PRN 01/02/21 [History Confirmed 01/02/21] calcium carbonate 500 mg PO DAILY 01/02/21 [History Confirmed 01/02/21] calcium carbonate-vitamin D3 [Calcium With Vitamin D3] 1 cap PO DAILY 01/02/21 [History Confirmed 01/02/21] calcium polycarbophil [Fiber-Lax] 1,250 mg PO DAILY 01/02/21 [History Confirmed 01/02/21] cholecalciferol (vitamin D3) 125 mcg PO DAILY 01/02/21 [History Confirmed 01/02/21] cyanocobalamin (vitamin B-12) [Vitamin B-12] 1,000 mcg PO DAILY 01/02/21 [History Confirmed 01/02/21] docusate sodium [Colace] 250 mg PO DAILY 01/02/21 [History Confirmed 01/02/21] ergocalciferol (vitamin D2) 50,000 unit PO WEEKLY 01/02/21 [History Confirmed 01/02/21] exenatide microspheres [Bydureon BCise] 2 mg SUBCUT WEEKLY 01/02/21 [History Confirmed 01/02/21] melatonin 10 mg PO HS 01/02/21 [History Confirmed 01/02/21] cbcjgncnlxmi-fpzsxyyu-wcahyi [Centrum Silver] 2 tablet PO DAILY 01/02/21 [History Confirmed 01/02/21] polyethylene glycol 3350 17 g PO DAILY 01/02/21 [History Confirmed 01/02/21] psyllium husk [Fiber-Caps (psyllium husk)] 0.52 g PO DAILY 01/02/21 [History Confirmed 01/02/21] Transfer Discharge Sum: Hosp Hospital Course Hospital course: patient is a 72-year-old male past medical history of HANNAH on CPAP, diabetes, hypertension, hyperlipidemia, CKD, prostate cancer with lung Mets presented to hospital from assisted living facility with hypoxia. Patient follows Dr. Mendoza oncologist at [facility]. he was diagnosed with prostate cancer 28 years ag
== END 2021-01-03 22:15 | disposition short-term general hospital (02) | DRG 193 ==
LOC: ANHED 18:12 → ANH3MEDSUR 01-03 17:46
PROVIDERS: Emergency Medicine; Internal Medicine Nephrology; Student in an Organized Health Care Education/Training Program; Admitting Provider Internal Medicine Critical Care Medicine; Emergency Provider Emergency Medicine; Visit Provider Internal Medicine
DX: J18.9 Pneumonia, unspecified organism (principal); J96.01 Acute respiratory failure with hypoxia; N39.0 Urinary tract infection, site not specified; C78.00 Secondary malignant neoplasm of unspecified lung; N17.9 Acute kidney failure, unspecified; E87.1 Hypo-osmolality and hyponatremia; I12.9 Hypertensive chronic kidney disease with stage 1 through stage 4 chronic kidney disease, or unspecified chronic kidney disease; E11.22 Type 2 diabetes mellitus with diabetic chronic kidney disease; N18.9 Chronic kidney disease, unspecified; G47.33 Obstructive sleep apnea (adult) (pediatric); C61 Malignant neoplasm of prostate
CPT/HCPCS: 36415; 36600; 71045; 71250; 76775; 80048; 80053; 81001; 82375; 82550; 82570; 82805; 82948; 83036; 83050; 83605; 83735; 84145; 84156; 84300; 85025; 85610; 85730; 86480; 87040; 87077; 87086; 87088; 87186; 93005; 96365; 97165; 99285; A9270; J1650; J1815; J1956; J2405; J2543; J3370; J7030